=== PATIENT | female | born 1965 | race Caucasian/White ===

== ENCOUNTER 2019-01-30 14:55 | Emergency (ER) | payer OTHER, MEDICAID ==
--- NOTE | 2019-01-30 15:24 | ER Document Report ---
ED Medical Screen (RME) - General Chief Complaint: Problem with Feeding Tube Stated Complaint: FEEDING TUBE ISSUES Time Seen by Provider: 01/30/19 15:22 Primary Care Provider: ALICE AUSTIN PA [Primary Care Provider] - Follow up as needed Mode of Arrival: Ambulatory Information source: Patient Notes: 53-year-old female presents to ED for problems with her feeding tube. She states it came out. She states that she needs it replaced. She states he came out about 11 AM. She states she called [facility] where they told her to call the emergency room. I have greeted and performed a rapid initial assessment of this patient. A comprehensive ED assessment and evaluation of the patient, analysis of test results and completion of medical decision making process will be conducted by an additional ED providers. TRAVEL OUTSIDE OF THE [place] IN LAST 30 DAYS: No Doctor's Discharge - Discharge Referrals: ALICE AUSTIN PA [Primary Care Provider] - Follow up as needed
[2019-01-30 16:16] LABS: ABSOLUTE LYMPHOCYTES (AUTO) 0.6 10^3/uL (0.5-4.7); ABSOLUTE MONOCYTES (AUTO) 0.3 10^3/uL (0.1-1.4); ABSOLUTE NEUT (AUTO) 3.8 10^3/uL (1.7-8.2); BASOPHILS % (AUTO) 0.3 % (0-2); HEMATOCRIT 42.5 % (36.0-47.0); HEMOGLOBIN 13.6 g/dL (12.0-15.5); LYMPHOCYTES % (AUTO) 11.9 % (13-45); MEAN CORPUSCULAR HEMOGLOBIN 26.2 pg (27.0-33.4); MEAN CORPUSCULAR HGB CONC 31.9 g/dL (32.0-36.0); MEAN CORPUSCULAR VOLUME 82 fl (80-97); MONOCYTES % (AUTO) 7.1 % (3-13); PLATELET COUNT 351 10^3/uL (150-450); RED BLOOD COUNT 5.16 10^6/uL (3.72-5.28); RED CELL DISTRIBUTION WIDTH 16.9 % (11.5-14.0); SEGMENTED NEUTROPHILS % (AUTO) 80.7 % (42-78); TOTAL CELLS COUNTED % (AUTO) 100 %; WHITE BLOOD COUNT 4.7 10^3/uL (4.0-10.5)
[2019-01-30 16:35] LABS: ALBUMIN 4.3 g/dL (3.5-5.0); ALKALINE PHOSPHATASE 90 U/L (38-126); ANION GAP 10 (5-19); ASPARTATE AMINO TRANSFERASE 28 U/L (14-36); BILIRUBIN,DIRECT 0.2 mg/dL (0.0-0.4); BILIRUBIN,TOTAL 0.5 mg/dL (0.2-1.3); BLOOD UREA NITROGEN 14 mg/dL (7-20); CALCIUM 10.1 mg/dL (8.4-10.2); CARBON DIOXIDE 26 mmol/L (22-30); CHLORIDE 104 mmol/L (98-107); GLUCOSE 92 mg/dL (75-110); POTASSIUM 4.6 mmol/L (3.6-5.0); TOTAL PROTEIN 6.8 g/dL (6.3-8.2)
[2019-01-30 17:00] LABS: APPEARANCE,URINE SLIGHTLY-CLOUDY; BILIRUBIN,URINE NEGATIVE (NEGATIVE); COLOR,URINE YELLOW; GLUCOSE, URINE NEGATIVE (NEGATIVE); KETONES,URINE NEGATIVE (NEGATIVE); PROTEIN,URINE NEGATIVE (NEGATIVE); UROBILINOGEN,URINE NEGATIVE mg/dL (<2.0)
--- NOTE | 2019-01-30 21:29 | ER Document Report ---
ED General - General Chief Complaint: Problem with Feeding Tube Stated Complaint: FEEDING TUBE ISSUES Time Seen by Provider: 01/30/19 15:22 Primary Care Provider: ALICE AUSTIN PA [Primary Care Provider] - Follow up as needed Mode of Arrival: Ambulatory TRAVEL OUTSIDE OF THE [place] IN LAST 30 DAYS: No - HPI Patient complains to provider of: My feeding tube has fallen out Onset: Just prior to arrival Associated symptoms: None Exacerbated by: Denies Relieved by: Denies - Related Data Allergies/Adverse Reactions: No Known Allergies Allergy (Verified 01/30/19 15:30) Home Medications: 0.35mg norethindrone. 20mg oxycodone. 25mcg/hr fentynal patch. 250mg/5ml kinga gabapentin. 50mcg fluticasone. 90mcg ventolin. 17mcg atrovent. 75mcg levothyroxine. 50mg topiramate Past Medical History - General Information source: Patient - Social History Smoking Status: Former Smoker Family History: None Patient has suicidal ideation: No Patient has homicidal ideation: No Past Surgical History: Reports: Hx Abdominal Surgery - Gtube 16F Review of Systems - Review of Systems EENT: denies: No symptoms reported, See HPI, Eye pain, Eye discharge, Blurred vision, Tearing, Double vision, Ear pain, Ear discharge, Nose pain, Nose congestion, Nose discharge, Sinus pressure, Sinus discharge, Throat pain, Difficulty swallowing, Throat swelling, Mouth pain, Mouth swelling, Dental problem, Vertigo, Other Cardiovascular: denies: No symptoms reported, See HPI, Chest pain, Palpitations, Heart racing, Orthopnea, Dyspnea, Syncope, Dizziness, Lightheaded, Edema, Other, Paroxysmal Nocturnal Dysp Gastrointestinal: denies: No symptoms reported, See HPI, Abdomen distended, Abdominal pain, Diarrhea, Nausea, Vomiting, Constipation, Blood streaked bowels, Poor appetite, Poor fluid intake, Blood in vomit, Black stools, Rectal bleeding, Last bowel movement, Fecal incontinence, Other -: Yes All other systems reviewed and negative Physical Exam - Vital signs Vitals: Temp Pulse Resp BP Pulse Ox 98.1 F 91 16 107/86 H 100 01/30/19 15:23 01/30/19 15:23 01/30/19 15:23 01/30/19 15:23 01/30/19 15:23 Notes: PHYSICAL EXAMINATION: GENERAL: Well-appearing, well-nourished and in no acute distress. HEAD: Atraumatic, normocephalic. EYES: Pupils equal round and reactive to light, extraocular movements intact, sclera anicteric, conjunctiva are normal. ENT: nares patent, oropharynx clear without exudates. Moist mucous membranes. NECK: Normal range of motion, supple without lymphadenopathy LUNGS: Breath sounds clear to auscultation bilaterally and equal. No wheezes rales or rhonchi. HEART: Regular rate and rhythm without murmurs ABDOMEN: Soft, nontender, normoactive bowel sounds. No guarding, no rebound. No masses appreciated. Gastrostomy site clean. No purulent drainage EXTREMITIES: Normal range of motion, no pitting or edema. No cyanosis. NEUROLOGICAL: No focal neurological deficits. Moves all extremities s pontaneously and on command. PSYCH: Normal mood, normal affect. SKIN: Warm, Dry, normal turgor, no rashes or lesions noted. Course - Vital Signs Vital signs: Temp Pulse Resp BP Pulse Ox 98.1 F 91 16 107/86 H 100 01/30/19 15:23 01/30/19 15:23 01/30/19 15:23 01/30/19 15:23 01/30/19 15:23 - Laboratory Result Diagrams: 01/30/19 16:01 01/30/19 16:01 Laboratory results interpreted by me: 01/30/19 01/30/19 16:01 16:10 MCH 26.2 L MCHC 31.9 L RDW 16.9 H Lymph % (Auto) 11.9 L Seg Neutrophils % 80.7 H Urine Ascorbic Acid 40 H Procedures - Additional Procedures Gastric tube replacement Time performed: 21:00 Additional Procedures: Gastric tube replacement - 16. [place] gastrostomy tube was placed easily balloon was inflated with 5 cc of air. A KUB with Gastrografin injection showed the tube in good position. Discharge - Discharge Clinical Impression: GASTROSTOMY TUBE PLACEMENT Condition: Good Disposition: HOME, SELF-CARE Additional Instructions: Return if there is further problems with your gastrostomy tube you may use it when you get home. Referrals: ALICE AUSTIN PA [Primary Care Provider] - Follow up as needed
--- NOTE | 2019-01-30 21:58 | RADIOLOGY REPORT (SQ) ---
EXAM DESCRIPTION: [facility]: XR ABDOMEN 1 VIEW (KUB) CLINICAL HISTORY: 53 years Female, with gastrograffin through gtube for placement. COMPARISON: None. FINDINGS: Gastrostomy tube is noted. There is contrast in the stomach. No extravasation. There is moderate gaseous distention of stomach: And mild gaseous distention of multiple small bowel segments. No pneumatosis. IMPRESSION: 1. Gastrostomy tube in place. No extravasation. 2. [id number] gaseous distention of bowel.
[2019-01-31 01:17] VITALS: BP 127/80
== END 2019-01-30 22:33 | disposition home or self-care (01) ==
LOC: ER 14:55
DX: Z43.1 Encounter for attention to gastrostomy (principal); Z79.899 Other long term (current) drug therapy; Z79.891 Long term (current) use of opiate analgesic; Z79.3 Long term (current) use of hormonal contraceptives; Z87.891 Personal history of nicotine dependence
CPT/HCPCS: 36415; 74018; 80053; 81001; 85025; 99283